=== PATIENT | female | born 1960 | race Caucasian/White ===

== ENCOUNTER 2017-03-31 11:03 | Outpatient (CLI) | payer OTHER ==
[~2017-03-31 11:03] MED LIST: CANA300T PO; DULA0.75 SQ
[2017-03-31 11:12] VITALS: BP 134/80
== END 2017-03-31 12:15 | disposition home or self-care (01) ==
LOC: ORTHO 11:03
PROVIDERS: ATTEND Nurse Practitioner Family
DX: S82.55XD Nondisplaced fracture of medial malleolus of left tibia, subsequent encounter for closed fracture with routine healing (principal); S62.603D Fracture of unspecified phalanx of left middle finger, subsequent encounter for fracture with routine healing; E11.9 Type 2 diabetes mellitus without complications; X58.XXXD Exposure to other specified factors, subsequent encounter
CPT/HCPCS: 29125; 73140; 73610

== ENCOUNTER 2017-05-12 08:56 | Outpatient (CLI) | payer OTHER ==
[2017-05-12 09:01] VITALS: BP 133/97
== END 2017-05-12 09:40 | disposition home or self-care (01) ==
LOC: ORTHO 08:56
PROVIDERS: ATTEND Nurse Practitioner Family
DX: S82.55XD Nondisplaced fracture of medial malleolus of left tibia, subsequent encounter for closed fracture with routine healing (principal); S62.621D Displaced fracture of middle phalanx of left index finger, subsequent encounter for fracture with routine healing; M19.072 Primary osteoarthritis, left ankle and foot; M19.042 Primary osteoarthritis, left hand; E11.9 Type 2 diabetes mellitus without complications; X58.XXXD Exposure to other specified factors, subsequent encounter
CPT/HCPCS: 73140; 73600

== ENCOUNTER 2017-06-07 10:31 | Outpatient (CLI) | payer OTHER ==
[2017-06-07 10:31] VITALS: BP 123/73
== END 2017-06-07 11:25 | disposition home or self-care (01) ==
LOC: ORTHO 10:31
PROVIDERS: ATTEND Nurse Practitioner Family
DX: S62.609D Fracture of unspecified phalanx of unspecified finger, subsequent encounter for fracture with routine healing (principal); E11.9 Type 2 diabetes mellitus without complications; X58.XXXD Exposure to other specified factors, subsequent encounter
CPT/HCPCS: 99212

== ENCOUNTER 2018-09-05 11:57 | Outpatient (CLI) | payer OTHER ==
[2018-09-05 13:11] LABS: ALANINE AMINOTRANSFERASE 28 U/L (12-78); ALBUMIN 3.8 G/DL (3.4-5.0); ALBUMIN/GLOBULIN RATIO 0.9 (1.1-1.5); ALKALINE PHOSPHATASE 69 IU/L (46-116); ANION GAP 13 (8-16); ASPARTATE AMINO TRANSFERASE 8 U/L (10-37); BILIRUBIN,TOTAL 0.4 MG/DL (0.1-1.0); BLOOD UREA NITROGEN 27 MG/DL (7-18); BUN/CREATININE RATIO 35.1 (6.6-38.0); CALCIUM 9.1 MG/DL (8.5-10.1); CHLORIDE 102 MMOL/L (99-107); CREATININE 0.77 MG/DL (0.40-0.90); GLUCOSE 174 MG/DL (70-104); POTASSIUM 3.8 MMOL/L (3.5-5.1); SODIUM 135 MMOL/L (135-145); TOTAL CARBON DIOXIDE 19.9 MMOL/L (24-32); TOTAL PROTEIN 7.9 G/DL (6.4-8.2); eGFR 77 ML/MIN
[2018-09-05 14:48] LABS: HEMOGLOBIN A1C 7.5 % (4.5-6.2)
== END 2018-09-05 23:59 | disposition home or self-care (01) ==
LOC: LAB 11:57
PROVIDERS: ATTEND Nurse Practitioner Family
DX: E11.65 Type 2 diabetes mellitus with hyperglycemia (principal); E03.9 Hypothyroidism, unspecified; E78.00 Pure hypercholesterolemia, unspecified
CPT/HCPCS: 36415; 80053; 83036

== ENCOUNTER 2018-10-01 04:12 | Emergency (ER) | payer OTHER ==
[~2018-10-01] VITALS: Ht 162.6 cm; Wt 58.2 kg
[2018-10-01] MEDS ORDERED: vancomycin/NS 1 GM ADD-VANTAGE 250 ML IV ONE (04:15)
[2018-10-01] MEDS ORDERED: piperacillin/tazo 3.375gm/50ml 50 ML IV ONE (04:15)
[2018-10-01 04:46] LABS: BASOPHILS # (AUTO) 0.1 X10'3 (0-0.2); BASOPHILS % (AUTO) 0.4 % (0-1); EOSINOPHILS # (AUTO) 0.1 X10'3 (0-0.9); EOSINOPHILS % (AUTO) 0.8 % (0-6); HEMATOCRIT 44.6 % (35.0-45.0); HEMOGLOBIN 15.1 g/dl (12.0-16.0); LYMPHOCYTES # (AUTO) 2.8 X10'3 (1.1-4.8); LYMPHOCYTES % (AUTO) 18.4 % (21-51); MEAN CORPUSCULAR HGB CONC 33.8 g/dL (33.0-36.5); MEAN CORPUSCULAR VOLUME 94.4 FL (78-98); MEAN PLATELET VOLUME 8.8 FL (7.4-10.4); MONOCYTES % (AUTO) 6.5 % (2-12); NEUTROPHILS # (AUTO) 11.1 X10'3 (1.8-7.7); NEUTROPHILS % (AUTO) 73.9 % (42-75); PLATELET COUNT 215 X10'3 (140-440); RED BLOOD COUNT 4.72 X10'6 (4.20-5.60); WHITE BLOOD COUNT 15.1 X10'3 (4.5-11.0)
[2018-10-01 04:58] LABS: ALANINE AMINOTRANSFERASE 28 U/L (12-78); ALBUMIN 3.8 G/DL (3.4-5.0); ALKALINE PHOSPHATASE 75 IU/L (46-116); ASPARTATE AMINO TRANSFERASE 7 U/L (10-37); BILIRUBIN,TOTAL 0.4 MG/DL (0.1-1.0); BLOOD UREA NITROGEN 18 MG/DL (7-18); BUN/CREATININE RATIO 26.1 (6.6-38.0); CALCIUM 9.3 MG/DL (8.5-10.1); CHLORIDE 100 MMOL/L (99-107); CREATININE 0.69 MG/DL (0.40-0.90); GLUCOSE 161 MG/DL (70-104); TOTAL CARBON DIOXIDE 20.2 MMOL/L (24-32); TOTAL PROTEIN 7.7 G/DL (6.4-8.2); eGFR 87 ML/MIN
[2018-10-01 05:16] LABS: ANION GAP 15 (8-16); POTASSIUM 3.4 MMOL/L (3.5-5.1); SODIUM 135 MMOL/L (135-145)
[2018-10-01 05:19] VITALS: BP 128/78
[2018-10-01] MEDS ORDERED: SULF1TAB49 PO (05:32)
[2018-10-01] MEDS ORDERED: CEPH-572 PO (05:32)
[2018-10-01] MEDS ORDERED: HYDR-3965 PO (05:41)
[2018-10-01] MEDS ORDERED: ONDA4TAB6 PO (05:41)
[2018-10-01] MEDS ORDERED: ondansetron/PF 4mg/2ml inj IV ONE (05:50)
[2018-10-01] MEDS ORDERED: HYDROcodone/acetaminophen 10/325mg tab PO ONE (05:50)
[2018-10-01] MEDS ORDERED: ketorolac tromethamine 15mg/ml inj. IV ONE (05:55)
[2018-10-01 05:59] LABS: C-REACTIVE PROTEIN 0.14 MG/DL (0.0-0.5)
== END 2018-10-01 06:59 | disposition home or self-care (01) ==
LOC: ER 04:13 → EEVIPCON 04:13 → ER 06:59
DX: L03.114 Cellulitis of left upper limb (principal); E11.9 Type 2 diabetes mellitus without complications; Z87.440 Personal history of urinary (tract) infections; Z79.899 Other long term (current) drug therapy
CPT/HCPCS: 29105; 36415; 80053; 83605; 83735; 84145; 85025; 85651; 86140; 87040; 96365; 96366; 96368; 96375; 99283; J1885; J2405; J2543; J3370

== ENCOUNTER 2018-10-05 01:37 | Emergency (ER) | payer OTHER ==
[~2018-10-05] VITALS: Ht 162.6 cm; Wt 58.2 kg
[~2018-10-05 01:37] MED LIST changes: +CEPH-572 PO; +HYDR-3965 PO; +ONDA4TAB6 PO; +SULF1TAB49 PO
[2018-10-05] MEDS ORDERED: piperacillin/tazo 4.5gm/100ml 100 ML IV SCH (02:25)
[2018-10-05 02:28] LABS: BASOPHILS % (AUTO) 0.5 % (0-1); EOSINOPHILS # (AUTO) 0.1 X10'3 (0-0.9); EOSINOPHILS % (AUTO) 1.1 % (0-6); HEMATOCRIT 44.9 % (35.0-45.0); HEMOGLOBIN 15.6 g/dl (12.0-16.0); LYMPHOCYTES # (AUTO) 2.7 X10'3 (1.1-4.8); LYMPHOCYTES % (AUTO) 28.8 % (21-51); MEAN CORPUSCULAR HEMOGLOBIN 32.5 PG (27.0-31.0); MEAN CORPUSCULAR HGB CONC 34.7 g/dL (33.0-36.5); MEAN CORPUSCULAR VOLUME 93.8 FL (78-98); MEAN PLATELET VOLUME 8.7 FL (7.4-10.4); MONOCYTES # (AUTO) 0.8 X10'3 (0-0.9); NEUTROPHILS # (AUTO) 5.7 X10'3 (1.8-7.7); NEUTROPHILS % (AUTO) 60.6 % (42-75); PLATELET COUNT 255 X10'3 (140-440); RED BLOOD COUNT 4.79 X10'6 (4.20-5.60); RED CELL DISTRIBUTION WIDTH 13.3 % (11.5-14.5); WHITE BLOOD COUNT 9.3 X10'3 (4.5-11.0)
[2018-10-05 02:32] LABS: ALANINE AMINOTRANSFERASE 25 U/L (12-78); ALBUMIN 3.8 G/DL (3.4-5.0); ALBUMIN/GLOBULIN RATIO 0.9 (1.1-1.5); ALKALINE PHOSPHATASE 79 IU/L (46-116); ANION GAP 14 (8-16); BILIRUBIN,TOTAL 0.4 MG/DL (0.1-1.0); BLOOD UREA NITROGEN 17 MG/DL (7-18); BUN/CREATININE RATIO 19.5 (6.6-38.0); CALCIUM 8.2 MG/DL (8.5-10.1); CHLORIDE 100 MMOL/L (99-107); CREATININE 0.87 MG/DL (0.40-0.90); SODIUM 134 MMOL/L (135-145); TOTAL CARBON DIOXIDE 19.9 MMOL/L (24-32); TOTAL PROTEIN 8.1 G/DL (6.4-8.2); eGFR 67 ML/MIN
[2018-10-05 02:41] LABS: PARTIAL THROMBOPLASTIN TIME 31 SECONDS (22-32)
[2018-10-05 02:46] LABS: ASPARTATE AMINO TRANSFERASE 10 U/L (10-37)
[2018-10-05] MEDS ORDERED: SEMA1PEN SQ (02:51)
[2018-10-05 02:52] LABS: GLUCOSE 201 MG/DL (70-104); POTASSIUM 3.7 MMOL/L (3.5-5.1)
--- NOTE | 2018-10-05 03:51 | NUR ---
pt to be admitted awaiting hospitalist, med rec completed.
[2018-10-05 03:54] LABS: CLARITY,URINE CLEAR (Clear); COLOR,URINE YELLOW (Yellow); GLUCOSE, URINE >=1000 mg/dl (Neg); KETONES,URINE TRACE mg/dl (Neg); LEUKOCYTE ESTERASE ,URINE NEGATIVE (Neg); NITRITES, URINE NEGATIVE (Neg); OCCULT BLOOD,URINE TRACE-INTACT (Neg); PROTEIN,URINE NEGATIVE (Neg); UROBILINOGEN,URINE 0.2 E.U/dL (0.2-1.0)
[2018-10-05 04:01] LABS: UA COLLECTION TYPE CLN CATCH MIDSTREAM
[2018-10-05 04:02] LABS: BACTERIA,URINE FEW /HPF (Neg); RBC,URINE NONE SEEN /HPF (0-2); SQUAMOUS EPITHELIAL CELL,UR MANY /LPF (FEW); WBC,URINE 0-4 /HPF (0-4)
[2018-10-05] MEDS ORDERED: iohexol 300mg/ml 100ml inj. ONE (04:16)
--- NOTE | 2018-10-05 04:17 | NUR ---
dr. soliman talked with dr. velazquez who requests pt to have ct with contrast and then reeval admission vs outpatient treatment.
--- NOTE | 2018-10-05 06:01 | NUR ---
pain to left shouder increasing to 5 out of 10. Pt reports toradol worked last time she was here. Verbal from Dr. Daniel for toradol 15 mg iv.
[2018-10-05 06:02] VITALS: BP 117/71
[2018-10-05] MEDS ORDERED: ketorolac trometh. 30mg/ml inj. IV ONE ×2 (06:05→06:10)
[2018-10-05] MEDS ORDERED: DOXY100C43 PO (06:08)
== END 2018-10-05 06:31 | disposition home or self-care (01) ==
LOC: ER 01:37
DX: L98.9 Disorder of the skin and subcutaneous tissue, unspecified (principal); M25.512 Pain in left shoulder; E11.9 Type 2 diabetes mellitus without complications; R79.1 Abnormal coagulation profile; Z98.890 Other specified postprocedural states; Z79.899 Other long term (current) drug therapy
CPT/HCPCS: 36415; 71045; 73201; 80053; 81001; 83605; 84145; 85025; 85610; 85730; 87040; 96365; 96366; 96375; 99285; J1885; J2543; Q9967

== ENCOUNTER 2018-10-14 06:38 | Emergency (ER) | payer OTHER ==
[~2018-10-14] VITALS: Ht 162.6 cm; Wt 58.2 kg
[~2018-10-14 06:38] MED LIST changes: -CEPH-572 PO; +DOXY100C43 PO; -DULA0.75 SQ; -HYDR-3965 PO; -ONDA4TAB6 PO; +SEMA1PEN SQ; -SULF1TAB49 PO
[2018-10-14] MEDS ORDERED: DOXY100C43 PO (07:02)
[2018-10-14 07:09] VITALS: BP 144/72
== END 2018-10-14 07:11 | disposition home or self-care (01) ==
LOC: ER 06:38
DX: M25.512 Pain in left shoulder (principal); R22.31 Localized swelling, mass and lump, right upper limb; E11.9 Type 2 diabetes mellitus without complications; Z76.0 Encounter for issue of repeat prescription; Z98.890 Other specified postprocedural states; Z79.899 Other long term (current) drug therapy
CPT/HCPCS: 99283

== ENCOUNTER 2019-02-14 09:44 | Outpatient (CLI) | payer OTHER ==
[~2019-02-14 09:44] MED LIST changes: -DOXY100C43 PO
[2019-02-14 10:14] LABS: BASOPHILS % (AUTO) 0.6 % (0-1); EOSINOPHILS # (AUTO) 0.1 X10'3 (0-0.9); EOSINOPHILS % (AUTO) 1.7 % (0-6); HEMATOCRIT 46.8 % (35.0-45.0); HEMOGLOBIN 16.1 g/dl (12.0-16.0); LYMPHOCYTES # (AUTO) 2.7 X10'3 (1.1-4.8); LYMPHOCYTES % (AUTO) 33.7 % (21-51); MEAN CORPUSCULAR HEMOGLOBIN 32.3 PG (27.0-31.0); MEAN CORPUSCULAR HGB CONC 34.3 g/dL (33.0-36.5); MEAN PLATELET VOLUME 8.3 FL (7.4-10.4); MONOCYTES # (AUTO) 0.8 X10'3 (0-0.9); MONOCYTES % (AUTO) 9.9 % (2-12); NEUTROPHILS # (AUTO) 4.4 X10'3 (1.8-7.7); NEUTROPHILS % (AUTO) 54.1 % (42-75); PLATELET COUNT 212 X10'3 (140-440); RED BLOOD COUNT 4.97 X10'6 (4.20-5.60); RED CELL DISTRIBUTION WIDTH 13.7 % (11.5-14.5); WHITE BLOOD COUNT 8.1 X10'3 (4.5-11.0)
[2019-02-14 10:34] LABS: CHOL/HDL RATIO 6.1 (0.00-4.99); CHOLESTEROL 214 MG/DL (0-200); HDL CHOLESTEROL 35 MG/DL (35-60); HEMOGLOBIN A1C 7.3 % (4.5-6.2); LDL CHOLESTEROL 105 MG/DL (50-100); TRIGLYCERIDES 399 MG/DL (20-135)
== END 2019-02-14 23:59 | disposition home or self-care (01) ==
LOC: LAB 09:44
PROVIDERS: ATTEND Nurse Practitioner Family
DX: Z13.21 Encounter for screening for nutritional disorder (principal); E11.65 Type 2 diabetes mellitus with hyperglycemia; D64.9 Anemia, unspecified; E78.00 Pure hypercholesterolemia, unspecified; E06.3 Autoimmune thyroiditis; E06.9 Thyroiditis, unspecified; E03.9 Hypothyroidism, unspecified; N95.1 Menopausal and female climacteric states; N95.8 Other specified menopausal and perimenopausal disorders; E34.9 Endocrine disorder, unspecified; E28.0 Estrogen excess; E55.9 Vitamin D deficiency, unspecified; D50.9 Iron deficiency anemia, unspecified; I10 Essential (primary) hypertension; R68.89 Other general symptoms and signs; R79.1 Abnormal coagulation profile; R87.1 Abnormal level of hormones in specimens from female genital organs
CPT/HCPCS: 36415; 80061; 83036; 84439; 84443; 85025

== ENCOUNTER 2019-06-25 13:49 | Outpatient (CLI) | payer OTHER ==
[2019-06-25 14:39] LABS: BASOPHILS % (AUTO) 0.6 % (0-1); EOSINOPHILS # (AUTO) 0.1 X10'3 (0-0.9); EOSINOPHILS % (AUTO) 1.1 % (0-6); HEMATOCRIT 46.1 % (35.0-45.0); HEMOGLOBIN 15.7 g/dl (12.0-16.0); LYMPHOCYTES # (AUTO) 2.7 X10'3 (1.1-4.8); MEAN CORPUSCULAR HEMOGLOBIN 32.2 PG (27.0-31.0); MEAN CORPUSCULAR VOLUME 94.6 FL (78-98); MEAN PLATELET VOLUME 8.5 FL (7.4-10.4); MONOCYTES # (AUTO) 0.7 X10'3 (0-0.9); MONOCYTES % (AUTO) 9.1 % (2-12); NEUTROPHILS # (AUTO) 4.4 X10'3 (1.8-7.7); NEUTROPHILS % (AUTO) 55.2 % (42-75); PLATELET COUNT 216 X10'3 (140-440); RED BLOOD COUNT 4.88 X10'6 (4.20-5.60); RED CELL DISTRIBUTION WIDTH 12.6 % (11.5-14.5)
[2019-06-25 14:55] LABS: ALANINE AMINOTRANSFERASE 23 U/L (12-78); ALBUMIN 4.1 G/DL (3.4-5.0); ALBUMIN/GLOBULIN RATIO 1.1 (1.1-1.5); ALKALINE PHOSPHATASE 56 IU/L (46-116); ANION GAP 9 (8-16); ASPARTATE AMINO TRANSFERASE 13 U/L (10-37); BILIRUBIN,TOTAL 0.3 MG/DL (0.1-1.0); BLOOD UREA NITROGEN 19 MG/DL (7-18); BUN/CREATININE RATIO 22.6 (6.6-38.0); CHLORIDE 104 MMOL/L (99-107); CREATININE 0.84 MG/DL (0.40-0.90); GLUCOSE 170 MG/DL (70-104); MAGNESIUM 1.9 MG/DL (1.5-2.4); SODIUM 137 MMOL/L (135-145); TOTAL CARBON DIOXIDE 23.9 MMOL/L (24-32); TOTAL PROTEIN 7.7 G/DL (6.4-8.2); eGFR 69 ML/MIN
[2019-06-25 15:06] LABS: HEMOGLOBIN A1C 7.5 % (4.5-6.2)
== END 2019-06-25 23:59 | disposition home or self-care (01) ==
LOC: LAB 13:49
PROVIDERS: ATTEND Anesthesiology
DX: E06.3 Autoimmune thyroiditis (principal); E03.9 Hypothyroidism, unspecified
CPT/HCPCS: 36415; 80053; 82306; 82670; 82679; 83036; 83525; 83735; 84144; 85025

== ENCOUNTER 2019-10-08 13:06 | Outpatient (CLI) | payer BC ==
[2019-10-08 13:58] LABS: ALANINE AMINOTRANSFERASE 24 U/L (12-78); ALBUMIN 4.3 G/DL (3.4-5.0); ALBUMIN/GLOBULIN RATIO 1.1 (1.1-1.5); ALKALINE PHOSPHATASE 66 IU/L (46-116); ANION GAP 11 (8-16); ASPARTATE AMINO TRANSFERASE 13 U/L (10-37); BILIRUBIN,TOTAL 0.6 MG/DL (0.1-1.0); BLOOD UREA NITROGEN 17 MG/DL (7-18); BUN/CREATININE RATIO 19.5 (6.6-38.0); CALCIUM 8.7 MG/DL (8.5-10.1); CHLORIDE 109 MMOL/L (99-107); CREATININE 0.87 MG/DL (0.40-0.90); GLUCOSE 187 MG/DL (70-104); POTASSIUM 3.6 MMOL/L (3.5-5.1); SODIUM 141 MMOL/L (135-145); TOTAL CARBON DIOXIDE 21.2 MMOL/L (24-32); TOTAL PROTEIN 8.3 G/DL (6.4-8.2); eGFR 67 ML/MIN
[2019-10-08 13:59] LABS: HEMOGLOBIN A1C 7.7 % (4.5-6.2)
== END 2019-10-08 23:59 | disposition home or self-care (01) ==
LOC: LAB 13:06
PROVIDERS: ATTEND Nurse Practitioner Family
DX: E11.9 Type 2 diabetes mellitus without complications (principal); E78.2 Mixed hyperlipidemia; D64.9 Anemia, unspecified
CPT/HCPCS: 36415; 80053; 83036

== ENCOUNTER 2019-10-11 06:44 | Emergency (ER) | payer BC ==
[~2019-10-11] VITALS: Ht 165.1 cm; Wt 57.0 kg
[2019-10-11 06:52] VITALS: BP 152/85
[2019-10-11 07:23] LABS: CLARITY,URINE SLIGHTLY CLOUDY (Clear); COLOR,URINE YELLOW (Yellow); GLUCOSE, URINE >=1000 mg/dl (Neg); KETONES,URINE NEGATIVE (Neg); LEUKOCYTE ESTERASE ,URINE NEGATIVE (Neg); NITRITES, URINE NEGATIVE (Neg); OCCULT BLOOD,URINE NEGATIVE (Neg); PROTEIN,URINE NEGATIVE (Neg); UA COLLECTION TYPE CLN CATCH MIDSTREAM; UROBILINOGEN,URINE 0.2 E.U/dL (0.2-1.0)
[2019-10-11 07:24] LABS: BACTERIA,URINE 4+ /HPF (Neg); SQUAMOUS EPITHELIAL CELL,UR MODERATE /LPF (FEW); WBC,URINE 50-100 /HPF (0-4)
[2019-10-11 07:25] LABS: WBC CLUMPS,URINE FEW /HPF (NEGATIVE)
[2019-10-11] MEDS ORDERED: cephalexin 250mg capsule PO ONE (07:25)
[2019-10-11] MEDS ORDERED: phenazopyridine 100mg tablet PO ONE (07:25)
[2019-10-11 07:26] LABS: CAL OXALATE CRYSTALS FEW /HPF (NEGATIVE); RBC,URINE 0-2 /HPF (0-2)
[2019-10-11] MEDS ORDERED: CEPH-572 PO (07:36)
[2019-10-11] MEDS ORDERED: PHEN-716 PO (07:36)
== END 2019-10-11 07:44 | disposition home or self-care (01) ==
LOC: ER 06:44
DX: N39.0 Urinary tract infection, site not specified (principal); E11.65 Type 2 diabetes mellitus with hyperglycemia; Z98.890 Other specified postprocedural states; Z79.899 Other long term (current) drug therapy
CPT/HCPCS: 81001; 82948; 87077; 87088; 87186; 99283

== ENCOUNTER 2020-02-28 01:49 | Emergency (ER) | payer BC ==
[~2020-02-28] VITALS: Ht 162.6 cm; Wt 55.5 kg
[~2020-02-28 01:49] MED LIST changes: +PHEN-716 PO
[2020-02-28 01:58] VITALS: BP 158/97
[2020-02-28] MEDS ORDERED: PHEN-786 PO (02:14)
[2020-02-28] MEDS ORDERED: CEPH250T PO (02:14)
[2020-02-28] MEDS ORDERED: phenazopyridine 100mg tablet PO ONE (02:15)
[2020-02-28] MEDS ORDERED: cephalexin 250mg capsule PO ONE (02:15)
[2020-02-28 02:21] LABS: CLARITY,URINE CLEAR (Clear); COLOR,URINE YELLOW (Yellow); GLUCOSE, URINE >=1000 mg/dl (Neg); KETONES,URINE NEGATIVE (Neg); LEUKOCYTE ESTERASE ,URINE NEGATIVE (Neg); NITRITES, URINE NEGATIVE (Neg); OCCULT BLOOD,URINE TRACE-LYSED (Neg); PH,URINE 5.5 (4.8-8.0); PROTEIN,URINE NEGATIVE (Neg); UROBILINOGEN,URINE 0.2 E.U/dL (0.2-1.0)
[2020-02-28 02:27] LABS: UA COLLECTION TYPE CLN CATCH MIDSTREAM
[2020-02-28 02:28] LABS: BACTERIA,URINE 1+ /HPF (Neg); RBC,URINE 0-2 /HPF (0-2); SQUAMOUS EPITHELIAL CELL,UR FEW /LPF (FEW)
== END 2020-02-28 02:23 | disposition home or self-care (01) ==
LOC: ER 01:49
DX: N39.0 Urinary tract infection, site not specified (principal); E11.9 Type 2 diabetes mellitus without complications; Z98.890 Other specified postprocedural states; Z79.899 Other long term (current) drug therapy
CPT/HCPCS: 81001; 87077; 87088; 87186; 99283

== ENCOUNTER 2020-03-31 15:09 | Outpatient (CLI) | payer BC ==
[~2020-03-31 15:09] MED LIST changes: +PHEN-786 PO
[2020-03-31 17:01] LABS: BASOPHILS % (AUTO) 0.5 % (0-1); EOSINOPHILS # (AUTO) 0.1 X10'3 (0-0.9); EOSINOPHILS % (AUTO) 1.8 % (0-6); HEMATOCRIT 45.6 % (35.0-45.0); HEMOGLOBIN 15.6 g/dl (12.0-16.0); LYMPHOCYTES # (AUTO) 2.7 X10'3 (1.1-4.8); LYMPHOCYTES % (AUTO) 34.4 % (21-51); MEAN CORPUSCULAR HEMOGLOBIN 31.5 PG (27.0-31.0); MEAN CORPUSCULAR HGB CONC 34.2 g/dL (33.0-36.5); MEAN CORPUSCULAR VOLUME 92.2 FL (78-98); MEAN PLATELET VOLUME 9.2 FL (7.4-10.4); MONOCYTES # (AUTO) 0.7 X10'3 (0-0.9); MONOCYTES % (AUTO) 8.8 % (2-12); NEUTROPHILS # (AUTO) 4.2 X10'3 (1.8-7.7); NEUTROPHILS % (AUTO) 54.5 % (42-75); PLATELET COUNT 208 X10'3 (140-440); RED BLOOD COUNT 4.95 X10'6 (4.20-5.60); RED CELL DISTRIBUTION WIDTH 13.3 % (11.5-14.5); WHITE BLOOD COUNT 7.8 X10'3 (4.5-11.0)
[2020-03-31 17:10] LABS: ALANINE AMINOTRANSFERASE 39 U/L (12-78); ALBUMIN 4.3 G/DL (3.4-5.0); ALKALINE PHOSPHATASE 86 IU/L (46-116); ANION GAP 12 (8-16); ASPARTATE AMINO TRANSFERASE 14 U/L (10-37); BILIRUBIN,TOTAL 0.5 MG/DL (0.1-1.0); BLOOD UREA NITROGEN 28 MG/DL (7-18); BUN/CREATININE RATIO 38.4 (6.6-38.0); CALCIUM 10.1 MG/DL (8.5-10.1); CHLORIDE 101 MMOL/L (99-107); CREATININE 0.73 MG/DL (0.40-0.90); GLUCOSE 210 MG/DL (70-104); MAGNESIUM 2.2 MG/DL (1.5-2.4); POTASSIUM 4.1 MMOL/L (3.5-5.1); SODIUM 137 MMOL/L (135-145); TOTAL CARBON DIOXIDE 23.8 MMOL/L (24-32); TOTAL PROTEIN 8.4 G/DL (6.4-8.2); eGFR 81 ML/MIN
[2020-03-31 17:19] LABS: HEMOGLOBIN A1C 8.5 % (4.5-6.2)
[2020-04-02 13:12] LABS: ESTRADIOL <5.0 pg/mL (.); PROGESTERONE 4.1 ng/mL (.)
== END 2020-03-31 23:59 | disposition home or self-care (01) ==
LOC: LAB 15:09 → EEVIPCON 15:09 → LAB 23:59
PROVIDERS: ATTEND Anesthesiology
DX: Z13.21 Encounter for screening for nutritional disorder (principal); R53.83 Other fatigue; R53.81 Other malaise; D50.9 Iron deficiency anemia, unspecified; R79.1 Abnormal coagulation profile; R68.89 Other general symptoms and signs; R73.01 Impaired fasting glucose; I10 Essential (primary) hypertension; E34.9 Endocrine disorder, unspecified; E55.9 Vitamin D deficiency, unspecified; E28.0 Estrogen excess
CPT/HCPCS: 36415; 80053; 82670; 82679; 83036; 83735; 84144; 85025

== ENCOUNTER 2021-02-06 06:55 | Outpatient (CLI) | payer BC ==
[2021-02-06 08:42] LABS: BASOPHILS % (AUTO) 0.6 % (0-1); EOSINOPHILS # (AUTO) 0.1 X10'3 (0-0.9); EOSINOPHILS % (AUTO) 1.7 % (0-6); HEMATOCRIT 45.6 % (35.0-45.0); LYMPHOCYTES # (AUTO) 3.5 X10'3 (1.1-4.8); MEAN CORPUSCULAR VOLUME 92.9 FL (78-98); MEAN PLATELET VOLUME 9.9 FL (7.4-10.4); MONOCYTES # (AUTO) 0.8 X10'3 (0-0.9); MONOCYTES % (AUTO) 9.8 % (2-12); NEUTROPHILS # (AUTO) 3.6 X10'3 (1.8-7.7); NEUTROPHILS % (AUTO) 44.9 % (42-75); PLATELET COUNT 221 X10'3 (140-440); RED BLOOD COUNT 4.92 X10'6 (4.20-5.60); RED CELL DISTRIBUTION WIDTH 12.9 % (11.5-14.5)
[2021-02-06 09:17] LABS: HEMOGLOBIN 15.9 g/dl (12.0-16.0)
[2021-02-06 09:18] LABS: MEAN CORPUSCULAR HEMOGLOBIN 31.7 PG (27.0-31.0); MEAN CORPUSCULAR HGB CONC 33.6 g/dL (33.0-36.5)
[2021-02-06 09:31] LABS: TOTAL CARBON DIOXIDE 17.4 MMOL/L (24-32)
[2021-02-06 09:34] LABS: HEMOGLOBIN A1C 7.2 % (4.5-6.2)
[2021-02-06 10:22] LABS: ALANINE AMINOTRANSFERASE 32 U/L (12-78); ALBUMIN 4.1 G/DL (3.4-5.0); ALBUMIN/GLOBULIN RATIO 1.1 (1.1-1.5); ALKALINE PHOSPHATASE 76 IU/L (46-116); ANION GAP 18 (8-16); ASPARTATE AMINO TRANSFERASE 17 U/L (10-37); BILIRUBIN,TOTAL 0.3 MG/DL (0.1-1.0); BLOOD UREA NITROGEN 25 MG/DL (7-18); BUN/CREATININE RATIO 26.9 (6.6-38.0); CALCIUM 8.7 MG/DL (8.5-10.1); CHLORIDE 102 MMOL/L (99-107); CREATININE 0.93 MG/DL (0.40-0.90); GLUCOSE 230 MG/DL (70-104); MAGNESIUM 2.1 MG/DL (1.5-2.4); SODIUM 137 MMOL/L (135-145); eGFR 61 ML/MIN
[2021-02-06 10:28] LABS: POTASSIUM 3.5 MMOL/L (3.5-5.1)
[2021-02-07 16:08] LABS: PROGESTERONE 0.7 ng/mL (.)
[2021-02-09 09:50] LABS: ESTRADIOL 17.1 pg/mL (.); THYROID PEROXIDASE AB 10 IU/mL (0-34); THYROXINE (T4) 0.9 ug/dL (4.5-12.0)
[2021-02-11 11:13] LABS: ESTRONE, SERUM 81 pg/mL (.)
== END 2021-02-06 23:59 | disposition home or self-care (01) ==
LOC: LAB 06:55
PROVIDERS: ATTEND Anesthesiology
DX: Z13.21 Encounter for screening for nutritional disorder (principal); R53.81 Other malaise; R53.83 Other fatigue; D50.9 Iron deficiency anemia, unspecified; R68.89 Other general symptoms and signs; R79.1 Abnormal coagulation profile; R73.01 Impaired fasting glucose; I10 Essential (primary) hypertension; E34.9 Endocrine disorder, unspecified; E28.0 Estrogen excess; E55.9 Vitamin D deficiency, unspecified
CPT/HCPCS: 36415; 80053; 82670; 82679; 83036; 83735; 84144; 84255; 84432; 84436; 84439; 84443; 84445; 84481; 84482; 84550; 84630; 85025; 86376; 86800